=== PATIENT | female | born 1970 | race Caucasian/White ===

== ENCOUNTER 2016-09-25 12:11 | Outpatient (CLI) | payer OTHER ==
[~2016-09-25 12:11] MED LIST: SYNTHROID100 MCG PO; VITAMIN D-31000 UNIT PO
== END 2016-09-25 23:00 ==
LOC: LAB SRH 12:11
DX: N93.9 Abnormal uterine and vaginal bleeding, unspecified (principal)
CPT/HCPCS: 90001; 90004; 90047; 90074; 90155; 90364; 91004; 91544; 92863; 95059; 98428

== ENCOUNTER 2016-09-28 06:55 | Day surgery (SDC) | payer OTHER ==
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
[~2016-09-28] VITALS: Ht 160 cm; Wt 67.8 kg
[2016-09-28] VITALS (8 sets, daily range): BP systolic 108–136; BP diastolic 63–84
--- NOTE | 2016-09-28 13:03 | Provider's Discharge Care Plan ---
Problem, Goal, Plan Problem List 1. Post-operative pain Goals: Improve disease control Instructions: Follow up as needed
--- NOTE | 2016-09-28 13:03 | Provider's Discharge Care Plan ---
Problem, Goal, Plan Problem List 1. Post-operative pain Goals: Improve disease control Instructions: Follow up as needed
[2016-09-28] MEDS ORDERED: PERCOCET1 TA1 PO (13:04)
--- NOTE | 2016-09-28 14:05 | OPERATIVE REPORT ---
DATE OF SURGERY: 09/28/2016 SURGEON: Raj Steve MD [employer] OFFICER: Chel Matute MD PREOPERATIVE DIAGNOSIS: 1. A 14 weeks' size enlarged uterus, suspected adenomyosis, severe anemia, abnormal uterine bleeding, no stress urinary incontinence POSTOPERATIVE DIAGNOSIS: 2. A 14 weeks' size enlarged uterus, suspected adenomyosis, severe anemia, abnormal uterine bleeding, no stress urinary incontinence, pathology pending PROCEDURE PERFORMED: 1. A 4-puncture supracervical hysterectomy with right salpingectomy. This was encased in a closed bag and brought through a 2 cm subumbilical site so the entire morcellated procedure was removed intact without seeding of small pieces. FINDINGS: Enlarged uterus. Previous left salpingectomy with oophorectomy. No significant adhesions, only the stump was removed for the left cornual area. ANESTHESIA: 20 ml of 0.25% local 1:200,000 epinephrine. Anesthesiologist: DONAVON Lombardi. COMPLICATIONS: None. CONDITION: Good. ESTIMATED BLOOD LOSS: Less than 100 mL FLUIDS: 1200. DRAINS: 100. Blood Administered: 1 unit preop for hematocrit of 25. PATHOLOGY SPECIMEN: Supracervical hysterectomy with right salpingectomy with no discernible left salpinx identified. IMPLANTS/GRAFTS: No grafts, no implants. DESCRIPTION OF PROCEDURE: The patient was prepped and draped in usual fashion after a time-out was performed. The patient had 2 grams of Ancef, 4 puncture spots were placed in the usual fashion, one 11 mm and three 5s. The uterus is top normal size 14 weeks as noted, with minimal difficulty we dissected down the ligaments on the side and took off the right tube and the right ovary remains, there was no left ovary or tube notable. We dissected down the lower uterine segment and across and developed a bladder flap. We dissected across the lower uterine segment and the specimen was freed, we placed this in the upper part of the abdomen, and we made a 2 cm subumbilical incision extension and placed the bag for collection. The uterus specimen was placed in there and then pulled up through the incision site and dissected with the scalpel. All pieces removed without difficulty. The bag was removed through the same port. The 0 poly was then used to figures of 8 in the fascia, 2 sutures of 4-0 poly were used on the skin, three 5 mm ports were just placed over with a Steri-Strips. By this point , we had insufflated the abdomen and looked for hemostasis and removed the free fluid. Sponge, needle, tape and instrument count was correct x2. The patient tolerated the procedure well and went to the recovery room in good condition.
== END 2016-09-28 19:02 | disposition home or self-care (01) ==
LOC: SCU SRH 06:55 → OR SRH 06:55 → ACUTE2 SRH 15:03 → OR SRH 19:02
PROVIDERS: Obstetrics & Gynecology
PROC: 0UT94ZZ Resection of Uterus, Percutaneous Endoscopic Approach (ICD-10-PCS; principal; 2016-09-28 09:00)
PROC: 0UT54ZZ Resection of Right Fallopian Tube, Percutaneous Endoscopic Approach (ICD-10-PCS; principal; 2016-09-28 09:00)
PROC: 30233N1 Transfusion of Nonautologous Red Blood Cells into Peripheral Vein, Percutaneous Approach (ICD-10-PCS; principal; 2016-09-28 09:00)
DX: N85.2 Hypertrophy of uterus (principal); D64.9 Anemia, unspecified; N93.8 Other specified abnormal uterine and vaginal bleeding; D25.9 Leiomyoma of uterus, unspecified